=== PATIENT | male | born 1955 | race Caucasian/White ===

== ENCOUNTER 2017-10-27 15:01 | Inpatient (IN) | payer MEDICAID, OTHER ==
[2017-10-26 20:00] VITALS: BP 107/70
[~2017-10-27] VITALS: Ht 167.6 cm; Wt 71.7 kg
--- NOTE | 2017-10-27 15:15 | NUR ---
BB PRIVATE EMS FROM [facility] FOR ADMISSION D/T SKIN GRAFT PROCEDURE. NOTED WITH DD ON BLE. SEEN BY MD FOR EVAL. SAFETY AND COMFORT MEASURES PROVIDED. WILL MONITOR.
[2017-10-27 15:52] LABS: BASOPHILS # (AUTO) 0.1 /CMM (0.0-0.2); BASOPHILS % (AUTO) 3.1 % (0.0-2.0); EOSINOPHILS % (AUTO) 3.6 % (0.0-6.0); HEMATOCRIT 25 % (39-51); HEMOGLOBIN 8.3 g/dL (13.5-17.5); LYMPHOCYTES # (AUTO) 0.5 /CMM (0.8-4.8); LYMPHOCYTES % (AUTO) 12.5 % (20.0-44.0); MEAN CORPUSCULAR HEMOGLOBIN 29 PG (26.0-33.0); MEAN CORPUSCULAR HGB CONC 33 g/dl (31.0-36.0); MEAN CORPUSCULAR VOLUME 86 fL (80-96); MONOCYTES # (AUTO) 0.6 /CMM (0.1-1.30); MONOCYTES % (AUTO) 13.3 % (2.0-12.0); NEUTROPHILS # (AUTO) 2.8 /CMM (1.8-8.9); NEUTROPHILS % (AUTO) 67.5 % (43.0-81.0); PLATELET COUNT (AUTO) 149 /CMM (150-450); RDW COEFFICIENT OF VARIATION 14.4 (11.5-15.0); WHITE BLOOD COUNT (AUTO) 4.2 K/uL (4.3-11.0)
[2017-10-27 16:02] LABS: CALCIUM, SERUM 7.9 mg/dL (8.5-10.1); CREATININE 1.1 mg/dL (0.6-1.3); POTASSIUM 3.6 mmol/L (3.5-5.1)
[2017-10-27 16:05] LABS: INR 1.17 (0.85-1.15)
--- NOTE | 2017-10-27 16:09 | NUR ---
NAI CALLED, NATHALIA NEFF POWER PLANT SUPERINTENDENT, TRANSFERRED CALL TO .
--- NOTE | 2017-10-27 16:17 | NUR ---
CALLED NURSING SUP. FOR MS BED
[2017-10-27] MEDS ORDERED: QUET50TA PO (16:31)
[2017-10-27] MEDS ORDERED: ZINC220T PO (16:31)
[2017-10-27] MEDS ORDERED: SPIR25TA PO (16:31)
[2017-10-27] MEDS ORDERED: QUET100T PO (16:31)
[2017-10-27] MEDS ORDERED: LACT10SO PO (16:31)
[2017-10-27] MEDS ORDERED: MIRT15TA PO (16:31)
[2017-10-27] MEDS ORDERED: FURO40TA5 PO (16:31)
[2017-10-27] MEDS ORDERED: CALC-494 PO (16:31)
[2017-10-27] MEDS ORDERED: DOCU-141 PO (16:31)
[2017-10-27] MEDS ORDERED: ONDA4TAB8 PO (16:31)
[2017-10-27] MEDS ORDERED: OXYC10TA49 PO (16:31)
[2017-10-27] MEDS ORDERED: MULT-213 PO (16:31)
[2017-10-27] MEDS ORDERED: GABA300C PO (16:31)
[2017-10-27] MEDS ORDERED: ASCO500T8 PO (16:31)
[2017-10-27] MEDS ORDERED: POLY17PO4 PO (16:31)
[2017-10-27] MEDS ORDERED: ACET-868 PO (16:31)
[2017-10-27] MEDS ORDERED: ONDANSETRON HCL/PF 4 MG/2 ML VIAL IVP PRN (17:00)
[2017-10-27] MEDS ORDERED: LACTULOSE 10 G/15 ML UDC (PYXIS) PO PRN (17:00)
[2017-10-27] MEDS ORDERED: Z GUARD REMEDY 2 OZ OINT TP PRN (17:00)
[2017-10-27] MEDS ORDERED: MAG HYDROX/AL HYDROX/SIMETH 30 ML UDC PO PRN (17:00)
[2017-10-27] MEDS ORDERED: MAGNESIUM HYDROXIDE 30 ML UDC PO PRN (17:00)
[2017-10-27] MEDS ORDERED: HYDROCODONE/APAP 5/325MG 1 EACH TABLET PO PRN (17:00)
[2017-10-27] MEDS ORDERED: POLYETHYLENE GLYCOL 3350 17 GM POWD.PACK PO PRN (17:00)
[2017-10-27] MEDS ORDERED: ACETAMINOPHEN 325 MG TABLET PO PRN (17:00)
--- NOTE | 2017-10-27 17:35 | NUR ---
CONSOLIDATION ACCOUNTANT NOTES RECEIVED PATIENT FROM ER VIA GURNEY. A/OX3, ABLE TO MAKE NEEDS KNOWN. TOLERATING ROOM AIR, O2SAT @ 97%. NO ACUTE DISTRESS, NO SOB NOTED. COMPLAINED OF PAIN IN BOTH LEGS 8/10, WILL ADMINISTER PAIN MEDS ORDERED. IV SITE INTACT AND PATENT. PATIENT IS FOR SKIN GRAFT TOMORROW. PATIENT RIGHT BKA NOTED. PATIENT REFUSED SKIN PHOTO ON LEFT LOWER EXTREMITY, PATIENT DOESNT WANT THE DRESSING TO BE TOUCHED. KEPT PATIENT SAFE AND COMFORTABLE. BED IN LOW/LOCKED POSITION, SIDERAILS UPX2, CALL LIGHT IN REACH. WILL CONTNIUE TO MONITOR ACCORDINGLY.
--- NOTE | 2017-10-27 17:48 | NUR ---
REPORT GIVEN TO RENE HOLM
--- NOTE | 2017-10-27 17:50 | NUR ---
RN NOTES PATIENT REFUSED SKIN ASSESSMENT ON HIS BACK. PER PATIENT, "I DONT HAVE ANY WOUNDS IN MY BACK".
[2017-10-27] MEDS: HYDROCODONE/APAP 10/325MG 1 EA TABLET PO PRN ×2 (18:13→21:40)
[2017-10-27] MEDS: CALCIUM CARB 600MG /VIT D 1 EACH TABLET PO SCH (18:14)
[2017-10-27] MEDS: GABAPENTIN 300 MG CAPSULE PO SCH (18:14)
[2017-10-27] MEDS: DOCUSATE SODIUM 100 MG CAPSULE PO SCH (18:14)
--- NOTE | 2017-10-27 19:26 | NUR ---
RN CLOSING NOTES PATIENT IN STABLE CONDITION. ALL NEEDS ATTENDED AND PROVIDED. KEPT PATIENT SAFE AND COMFORTABLE. BED IN LOW/LOCKED POSITION, SIDERAILS UPX2, SEMIFOWLERS POSITION, CALL LIGHT IN REACH. ENDORSED TO NIGHT RN FOR MARIA DEL CARMEN.
[2017-10-27 20:00] VITALS: BP 107/70
--- NOTE | 2017-10-27 20:00 | NUR ---
MS/RN OPENING NOTES PATIENT IN BED, ALERT, ORIENTED, RESPIRATIONS EVEN AND UNLABORED DISCUSSED PLAN OF CARE. SKIN WARM TO TOUCH, REQUESTED FOR SOME SNACKS, PATIENT REPORTED BEING HUNGRY. CALL LIGHTS WITHIN REACH, PROVIDESD FLUIDS,WILL MONITOR.
[2017-10-27] MEDS: QUETIAPINE FUMARATE 100 MG TABLET PO SCH (21:30)
[2017-10-27] MEDS: MIRTAZAPINE 15 MG TABLET PO SCH (21:30)
--- NOTE | 2017-10-27 21:37 | NUR ---
MS/RN NOTES PATIENT REPORTED SEVERE PAIN OF 9/10 IN BODY BACK, PAIN MEDICATION REQUESTED NEEDED NORCO 10-325MG PO WILL BE GIVEN.
[2017-10-27 21:50] VITALS: BP 107/70
--- NOTE | 2017-10-28 04:48 | NUR ---
MS/RN NOTES PATIENT AWAKEN, PAIN REPORTED 9/10 IN BACK AND LEGS.NORCO 10-325 MG PO TO BE GIVEN
[2017-10-28] MEDS: HYDROCODONE/APAP 10/325MG 1 EA TABLET PO PRN ×2 (04:50→09:10)
--- NOTE | 2017-10-28 06:28 | NUR ---
321-1 MS/RN NOTES PATIENT IN BED, ABLE TO SLEEP DURING THE NIGHT, MONITORING FOR PAIN RELIEF, DISCUSSED PLAN OF CARE, RESPIRATIONS EVEN AND UNLABORED, SKIN WARM TO TOUCH, WILL MONITOR.WILL ENDORSE TO AM RN FOR CO,
--- NOTE | 2017-10-28 07:15 | NUR ---
RN NOTES PATIENT A/OX3, HARD OF HEARING, BREATHING EVEN AND UNLABORED, NO DISTRESS NOTED. DENIES PAIN AT THIS TIME. KEPT COMFORTABLE, CLARIFIED PATIENT'S CODE STATUS, PATIENT STATED HE PREFERS TO BE DNR/DNI, MD AWARE. NEEDS ATTENDED AND MET, CALL LIGHT WITHIN REACH, WILL CONTINUE TO MONITOR.
[2017-10-28 07:28] LABS: BASOPHILS % (AUTO) 0.8 % (0.0-2.0); EOSINOPHILS % (AUTO) 5.2 % (0.0-6.0); HEMATOCRIT 24 % (39-51); LYMPHOCYTES # (AUTO) 0.6 /CMM (0.8-4.8); LYMPHOCYTES % (AUTO) 15.8 % (20.0-44.0); MEAN CORPUSCULAR HEMOGLOBIN 30 PG (26.0-33.0); MEAN CORPUSCULAR HGB CONC 34 g/dl (31.0-36.0); MEAN CORPUSCULAR VOLUME 88 fL (80-96); MONOCYTES # (AUTO) 0.4 /CMM (0.1-1.30); MONOCYTES % (AUTO) 11.8 % (2.0-12.0); NEUTROPHILS # (AUTO) 2.3 /CMM (1.8-8.9); NEUTROPHILS % (AUTO) 66.4 % (43.0-81.0); PLATELET COUNT (AUTO) 143 /CMM (150-450); RDW COEFFICIENT OF VARIATION 15.3 (11.5-15.0); WHITE BLOOD COUNT (AUTO) 3.5 K/uL (4.3-11.0)
[2017-10-28 07:49] LABS: CALCIUM, SERUM 8.1 mg/dL (8.5-10.1); MAGNESIUM 1.8 mg/dL (1.8-2.4); PHOSPHORUS 4.5 mg/dL (2.5-4.9); POTASSIUM 3.4 mmol/L (3.5-5.1)
[2017-10-28 07:51] LABS: THYROID STIMULATING HORMONE 4.178 uIU/mL (0.358-3.74)
[2017-10-28 08:00] VITALS: BP 108/66
[2017-10-28] MEDS: MULTIVIT, IRON, MIN NO. 8, FA 1 TAB PO SCH (09:03)
[2017-10-28] MEDS: FUROSEMIDE 40 MG TABLET PO SCH (09:03)
[2017-10-28] MEDS: QUETIAPINE FUMARATE 25 MG TABLET PO SCH (09:04)
[2017-10-28] MEDS: GABAPENTIN 300 MG CAPSULE PO SCH ×3 (09:04→17:44)
[2017-10-28] MEDS: ASCORBIC ACID 500 MG TABLET PO SCH (09:04)
[2017-10-28] MEDS: CALCIUM CARB 600MG /VIT D 1 EACH TABLET PO SCH ×3 (09:04→17:43)
[2017-10-28] MEDS: ZINC SULFATE 220 MG CAPSULE PO SCH (09:04)
[2017-10-28] MEDS: DOCUSATE SODIUM 100 MG CAPSULE PO SCH ×2 (09:04→17:43)
[2017-10-28] MEDS: SPIRONOLACTONE 25 MG TABLET PO SCH (09:05)
[2017-10-28] MEDS ORDERED: POTASSIUM CHLORIDE 20 MEQ TAB.PRT.SR PO SCH (11:30)
--- NOTE | 2017-10-28 12:36 | NUR ---
WOUND CARE CONSULT WOUND CARE RECEIVED CONSULT FOR MULTIPLE WOUNDS. WOUND CARE WILL DEFER CONSULT AND ALL TREATMENT PLANS TO PODIATRY THEY ARE CURRENTLY FOLLOWING AND PLANNING OP PROCEDURE. PATIENT WITH MOSES AT 17, ALL PRESSURE ULCER PREVENTION MEASURES ARE NOTED TO BE IN PLACE. WILL SEE PRN.
[2017-10-28] MEDS: oxyCODONE IR immediate release 5 MG PO PRN ×3 (13:28→21:50)
[2017-10-28 16:00] VITALS: BP 103/59
[2017-10-28] MEDS: HYDROGEL DRESSING 90 GM TUBE TP SCH (17:45)
[2017-10-28] MEDS: Z GUARD REMEDY 2 OZ OINT TP SCH (17:45)
--- NOTE | 2017-10-28 18:58 | NUR ---
RN NOTES PATIENT A/OX3, NO SIGNIFICANT CHANGE THIS SHIFT, PATIENT SIGNED CONSENT FOR TOMORROW'S PROCEDURE OF SKIN GRAFT. WILL BE NPO AFTER MIDNIGHT, NEEDS ATTENDED AND MET, WOUND TREATMENT RENDERED, CALL LIGHT WITHIN REACH, WILL ENDORSE TO FREIGHT AND PASSENGER AGENT FOR MARIA DEL CARMEN.
--- NOTE | 2017-10-28 19:45 | NUR ---
MS RN NOTES RECEIVED ON BED A/O X2-3,BREATHING REGULAR,NOT IN ANY FORM OF DISTRESS.NOTED DISTENDED ABDOMEN,SOEY TO TOUCH.PATIENT CLAIMED HE HAS ASCITIS FROM LIVER CIRRHOSIS.SALINE LOCK RFA INTACT AND PATENT.WITH KNOWN HX OF RIGHT BKA.ABLE TO VERBALIZE NEEDS.NOTED NON HEALIONG WOUNDS ON LLE,PLAN SKIN GRAFT TOMORROW,PATIENT AWARE.CALL LIGHT IN REACH,NEEDS ANTICIPATED.
[2017-10-28 20:00] VITALS: BP 102/60
[2017-10-28] MEDS: MIRTAZAPINE 15 MG TABLET PO SCH (21:48)
[2017-10-28] MEDS: QUETIAPINE FUMARATE 100 MG TABLET PO SCH (21:49)
--- NOTE | 2017-10-28 21:50 | NUR ---
MS RN NOTES PAIN MANAGEMENT C/O PAIN ON BOTH LEGS AND ABDOMEN 9/10 ON PAIN SCALE.GIVEN OXY IR 10MG PO PER PATIENT REQUEST,BP 102/60,PATIENT HIS BLOOD PRESSURE IS ALWAYS LOW.
[2017-10-29] MEDS: oxyCODONE IR immediate release 5 MG PO PRN ×5 (01:52→23:39)
--- NOTE | 2017-10-29 01:52 | NUR ---
MS RN NOTES C/O ABDOMINAL PAIN,OXY IR 10MG PO GIVEN
--- NOTE | 2017-10-29 05:30 | NUR ---
MS RN NOTES SLEEPING,REFUSED BLOOD DRAW,WANTS IT LATER.
--- NOTE | 2017-10-29 06:03 | NUR ---
MS RN NOTES KEPT NPO AFTER MIDNIGHT FOR SURGERY AT NOONTIME.SALINE LOCK INTACT AND PATENT ON RFA.PAIN MANAGEMENT EFFECTIVE.IN NO ACUTE DISTRESS.WILL ENDORSE TO DAY-NURSE FOR MARIA DEL CARMEN.
--- NOTE | 2017-10-29 07:42 | NUR ---
MS RN OPENING NOTES RECEIVED PT FROM NIGHTSHIFT NURSE IN STABLE CONDITION. PT IS A/O X4. NO SOB OR SIGNS OF INFILTRATION NOTED. BREATHING IS EVEN AND UNLABORED. PT DENIES PAIN AT THIS TIME. NPO STATUS MAINTAINED SINCE MIDNIGHT PT IS SCHEDULED FOR OR PROCEDURE AT NOON. PT REMINDED OF NUTRITION STATUS AND VERBALIZED FULL UNDERSTANDING. IV TP RIGHT FOREARM NOTED TO BE PATENT AND INTACT. NO REDNESS OR SIGNS OF INFILTRATION NOTED. BED IN LOW LOCKED POSITION, SIDE RAILS UP X2, JUAN C LIGHT WITHIN REACH. WILL CONTINUE TO MONITOR.
--- NOTE | 2017-10-29 07:49 | NUR ---
PT REFUSED AM LAB DRAW PER NIGHTSHIFT NURSE
[2017-10-29] MEDS: Z GUARD REMEDY 2 OZ OINT TP SCH (08:21)
[2017-10-29] MEDS: HYDROGEL DRESSING 90 GM TUBE TP SCH (08:21)
[2017-10-29 08:28] VITALS: BP 102/65
[2017-10-29] MEDS: FUROSEMIDE 40 MG TABLET PO SCH (08:38)
[2017-10-29] MEDS: SPIRONOLACTONE 25 MG TABLET PO SCH (08:38)
[2017-10-29] MEDS: DOCUSATE SODIUM 100 MG CAPSULE PO SCH ×2 (08:38→16:55)
[2017-10-29] MEDS: CALCIUM CARB 600MG /VIT D 1 EACH TABLET PO SCH ×3 (08:38→16:56)
[2017-10-29] MEDS: GABAPENTIN 300 MG CAPSULE PO SCH ×3 (08:38→16:56)
[2017-10-29] MEDS: MULTIVIT, IRON, MIN NO. 8, FA 1 TAB PO SCH (08:39)
[2017-10-29] MEDS: ASCORBIC ACID 500 MG TABLET PO SCH (08:39)
[2017-10-29] MEDS: ZINC SULFATE 220 MG CAPSULE PO SCH (08:39)
[2017-10-29] MEDS: QUETIAPINE FUMARATE 25 MG TABLET PO SCH (09:00)
[2017-10-29] MEDS ORDERED: LIDOCAINE 0.5% HCL 50 ML VIAL ONE (10:55)
[2017-10-29] MEDS ORDERED: MINERAL OIL 10 ML VIAL MC ONE ×2 (10:55→12:42)
[2017-10-29] MEDS ORDERED: ANESTHESIA TRAY IN PYXIS 1 EA TRAY MC ONE (10:55)
[2017-10-29] MEDS ORDERED: BUPIVACAINE 0.5 % PF 150 MG/30 ML VIAL ONE (10:55)
--- NOTE | 2017-10-29 11:30 | NUR ---
PT TAKEN DOWN TO OR IN STABLE CONDITION
[2017-10-29] MEDS ORDERED: FENTANYL PF 100MCG/2ML AMPUL ONE (11:59)
[2017-10-29] MEDS ORDERED: LIDOCAINE 0.5%-EPI 1:200,000 50 ML VIAL ONE (12:04)
[2017-10-29] MEDS ORDERED: CLINDAMYCIN 900 MG/6 ML VIAL ONE (12:21)
--- NOTE | 2017-10-29 14:36 | NUR ---
MS RN NOTES: POST OP RECEIVED PT FROM OR IN STABLE CONDITION. ORDERS NOTED FROM MD TO RESUME PROP ORDERS, WOUND VAC SETTINGS, AND TO KEEP SURGICAL DRESSING CLEAN, DRY, AND INTACT. WOUND VAC SETTING VERIFIED WITH OR NURSE AND SET TO 125mmHg. PT COMPLAINING OF PAIN RATED 8/10. WILL ADMINISTER PRN PAIN MEDICATION ALONG WITH 1300 MEDICATIONS. VITALS STABLE AT THIS TIME.
[2017-10-29 16:10] VITALS: BP 105/65
--- NOTE | 2017-10-29 18:38 | NUR ---
MS RN CLOSING NOTES PT REMAINS STABLE. ALL NEEDS WERE MET DURING SHIFT AND ORDERS CARRIED OUT ACCORDINGLY. ALL DUE MEDS GIVEN. WOUND AND SKIN CARE RENDERED. PT REPOSITIONED AND TURNED PER HOSPITAL PROTOCOL. PAIN PROPERLY MANAGED WITH PO MEDICATIONS. WOUND VAC REMAIN INTACT. SURGICAL DRESSING REMAINS CLEAN, DRY AND INTACT. SAFETY MEASURES REMAIN IN PLACE, WILL ENDORSE TO NIGHTSHIFT NURSE FOR MARIA DEL CARMEN
--- NOTE | 2017-10-29 19:35 | NUR ---
MS RN NOTES RECEIVED ON BED SLEEPING,AROUSABLE TO TACTILE STIMULI,SALINE LOCK LFA INTACT AND PATENT.S/P SKIN GRAFT ON LEFT LEFT,DRESSING INTACT AND DRY.ABDOMEN REMAINS DISTENDED FORM LIVER CIRRHOSIS.CALL LIGHT IN REACH,NEEDS ANTICIPATED.
--- NOTE | 2017-10-29 19:40 | NUR ---
MS RN NOTES PAIN MANAGEMENT C/O PAIN 8/10 ON LEFT LOWER LEG 8/10 ON PAIN SCALE,OXY IR 10MG PO GIVEN.BP 110/65.WILL CONTINUE TO MONITOR.
[2017-10-29 20:00] VITALS: BP 110/65
[2017-10-29] MEDS: QUETIAPINE FUMARATE 100 MG TABLET PO SCH (21:42)
[2017-10-29] MEDS: MIRTAZAPINE 15 MG TABLET PO SCH (21:43)
--- NOTE | 2017-10-29 23:39 | NUR ---
MS RN NOTES PAIN MANAGEMENT C/O LEFT LOWER LEG PAIN 8/10 ON PAIN SCALE,OXY IR 10MG PO GIVEN ORDERED.
[2017-10-30 00:44] LABS: CALCIUM, SERUM 8.1 mg/dL (8.5-10.1); CREATININE 1.1 mg/dL (0.6-1.3)
[2017-10-30] MEDS: oxyCODONE IR immediate release 5 MG PO PRN ×4 (05:35→20:49)
--- NOTE | 2017-10-30 05:35 | NUR ---
MS RN NOTES PAIN MANAGEMENT C/O PAIN 8/10 ON PAIN SCALE VIA LEFT LOWER LEG,OXY IR 10MG PO ORDERED.DRESSING TO LEFT LOWER LEG REMAINS PATENT.IN NO ACUTE DISTRESS.
--- NOTE | 2017-10-30 07:35 | NUR ---
MS RN OPENING NOTES RECEIVED PT FROM NIGHTSHIFT NURSE IN STABLE CONDITION. PT IS A/O X4. NO SOB OR ACUTE SIGNS OF DISTRESS NOTED. BREATHING IS EVEN AND UNLABORED. HE DENIES ANY PAIN AT THIS TIME. N IV TO RIGHT FOREARM HL, AND NOTED TO BE PATENT AND INTACT. NO REDNESS OR SIGNS OF INFILTRATION NOTED. SURGICAL DRESSINGS TO LEFT LOWER EXTREMITY NOTED TO BE CLEAN, DRY, AND INTACT. WOUND VAC AND INTACT WITH NO DRAINAGE NOTED AT THIS TIME. SETTINGS REVIEWED AND ARE ORDERED BY MD. BED IN LOW LOCKED POSITION, SIDE RAILS UP X2, JUAN C LIGHT WITHIN REACH. WILL CONTINUE TO MONITOR.
[2017-10-30 08:00] VITALS: BP 94/56
[2017-10-30] MEDS: ZINC SULFATE 220 MG CAPSULE PO SCH (08:44)
[2017-10-30] MEDS: ASCORBIC ACID 500 MG TABLET PO SCH (08:44)
[2017-10-30] MEDS: DOCUSATE SODIUM 100 MG CAPSULE PO SCH ×2 (08:44→16:47)
[2017-10-30] MEDS: CALCIUM CARB 600MG /VIT D 1 EACH TABLET PO SCH ×3 (08:44→16:47)
[2017-10-30] MEDS: GABAPENTIN 300 MG CAPSULE PO SCH ×3 (08:44→16:46)
[2017-10-30] MEDS: QUETIAPINE FUMARATE 25 MG TABLET PO SCH (08:44)
[2017-10-30] MEDS: MULTIVIT, IRON, MIN NO. 8, FA 1 TAB PO SCH (08:44)
[2017-10-30] MEDS: FUROSEMIDE 40 MG TABLET PO SCH (08:45)
[2017-10-30] MEDS: SPIRONOLACTONE 25 MG TABLET PO SCH (08:45)
[2017-10-30] MEDS: HYDROGEL DRESSING 90 GM TUBE TP SCH (08:45)
[2017-10-30] MEDS: Z GUARD REMEDY 2 OZ OINT TP SCH (08:45)
[2017-10-30 16:00] VITALS: BP 101/62
--- NOTE | 2017-10-30 16:35 | NUR ---
MS RN NOTES: D/C HELD PORTABLE WOUND VAC DELIVERED HOWEVER TUBING IS NOT COMPATIBLE WITH PT'S CURRENT WOUND VAC CONNECTOR TUBING. CASE MANAGEMENT MADE AWARE AND STATES THAT ANOTHER WILL BE ORDERED HOWEVER WILL NOT BE DELIVER UNTIL TOMORROW. DR. FERGUSON CONTACTED AND MADE AWARE BY SANDBLASTER SUPERVISOR. NATHALIA NEFF AND CHARGE NURSE UPDATED.
--- NOTE | 2017-10-30 18:25 | NUR ---
MS RN CLOSING NOTES PT REMAINS STABLE. ALL NEEDS WERE MET DURING SHIFT AND ORDERS CARRIED OUT ACCORDINGLY. ALL DUE MEDS GIVEN. WOUND AND SKIN CARE RENDERED. PT REPOSITIONED AND TURNED PER HOSPITAL PROTOCOL. PAIN PROPERLY MANAGED WITH PO MEDICATIONS. WOUND VAC REMAINS INTACT. SURGICAL DRESSING REMAINS CLEAN, DRY AND INTACT. SAFETY MEASURES REMAIN IN PLACE. WILL ENDORSE TO NIGHTSHIFT NURSE FOR MARIA DEL CARMEN
--- NOTE | 2017-10-30 19:40 | NUR ---
RN OPENING NOTES RECEIVED REPORT FROM DAYSHIFT RN AFSATU. FOUND Pt AWAKE, RESTING IN BED, WATCHING TV. NO S/S OF ACUTE DISTRESS OR SOB NOTED. Pt IS A/OX4, VERBAL, ABLE TO MAKE NEEDS KNOWN. IV ACCESS ON RFA #20G, SL. WOUND VAC FOR LEFT LEG. SAFETY MEASURES IN PLACE. BED LOW, LOCKED, HOB ELEVATED, SIDE RAILS UP, CALL LIGHT AND BEDSIDE TABLE WITHIN REACH. WILL CONTINUE TO MONITOR Pt THROUGHOUT THE NIGHT FOR SAFETY.
[2017-10-30 20:00] VITALS: BP 112/68
[2017-10-30] MEDS: MIRTAZAPINE 15 MG TABLET PO SCH (22:13)
[2017-10-30] MEDS: QUETIAPINE FUMARATE 100 MG TABLET PO SCH (22:13)
[2017-10-31] MEDS: oxyCODONE IR immediate release 5 MG PO PRN ×5 (02:35→23:21)
--- NOTE | 2017-10-31 02:35 | NUR ---
RN NOTES SYSTEM GLITCHED AND DID NOT SAVE THAT I SCANNED THE OXY MED. HAD TO MANUALLY CLICK TO RESAVE IT SINCE I THREW AWAY THE PACKAGE AFTER ADMINISTERING THE OXY PAIN MED TO THE Pt.
--- NOTE | 2017-10-31 06:40 | NUR ---
RN CLOSING NOTES NO SIGNIFICANT CHANGES DURING THE NIGHT. Pt REMAINS IN STABLE CONDITION AT THIS TIME. NO S/S OF ACUTE DISTRESS OR SOB NOTED DURING THE SHIFT. ALL NEEDS MET AND ATTENDED TO. SAFETY MEASURES IN PLACE. BED LOW, LOCKED, HOB ELEVATED, SIDE RAILS UP, CALL LIGHT AND BEDSIDE TABLE WITHIN REACH. WILL ENDORSE TO DAYSHIFT RN FOR Pt's MARIA DEL CARMEN.
--- NOTE | 2017-10-31 07:05 | NUR ---
MS RN NOTES PATIENT IN BED ALERT ORIENTED X 4. VERBALLY RESPONSIVE. NO ACUTE DISTRESS NOTED. BREATHING UNLABORED. NO SOB NOTED.WOUND VAC INTACT FUNCTIONING WELL. IV ACCESS PATENT AND INTACT, NO REDNESS OR SWELLING NOTED. SAFETY MEASURES IN PLACE. HOB ELEVATED. CALL LIGHT WITHIN REACH. WILL CONTINUE TO MONITOR ACCORDINGLY.
[2017-10-31] MEDS: SPIRONOLACTONE 25 MG TABLET PO SCH (09:00)
[2017-10-31] MEDS: FUROSEMIDE 40 MG TABLET PO SCH (09:00)
[2017-10-31] MEDS: MULTIVIT, IRON, MIN NO. 8, FA 1 TAB PO SCH (09:05)
[2017-10-31] MEDS: DOCUSATE SODIUM 100 MG CAPSULE PO SCH ×2 (09:05→17:35)
[2017-10-31] MEDS: ZINC SULFATE 220 MG CAPSULE PO SCH (09:05)
[2017-10-31] MEDS: QUETIAPINE FUMARATE 25 MG TABLET PO SCH (09:06)
[2017-10-31] MEDS: GABAPENTIN 300 MG CAPSULE PO SCH ×3 (09:06→17:35)
[2017-10-31] MEDS: ASCORBIC ACID 500 MG TABLET PO SCH (09:06)
[2017-10-31] MEDS: CALCIUM CARB 600MG /VIT D 1 EACH TABLET PO SCH ×3 (09:06→17:35)
[2017-10-31] MEDS: HYDROGEL DRESSING 90 GM TUBE TP SCH (09:10)
[2017-10-31] MEDS: Z GUARD REMEDY 2 OZ OINT TP SCH (09:10)
[2017-10-31 16:00] VITALS: BP 108/62
--- NOTE | 2017-10-31 18:57 | NUR ---
MS RN NOTES PATIENT IN BED ALERT ORIENTED X 4. VERBALLY RESPONSIVE. NO ACUTE DISTRESS NOTED. BREATHING UNLABORED. NO SOB NOTED.WOUND VAC INTACT FUNCTIONING WELL. IV ACCESS PATENT AND INTACT, NO REDNESS OR SWELLING NOTED. DUE MEDICATIONS GIVEN, NO ASE NOTED. NEEDS ATTENDED AND ANTICIPATED. SAFETY MEASURES IN PLACE. HOB ELEVATED. CALL LIGHT WITHIN REACH. WILL CONTINUE TO MONITOR ACCORDINGLY. WILL ENDORSE TO NIGHT NURSE FOR CONTINUITY OF CARE.
--- NOTE | 2017-10-31 19:00 | NUR ---
MS RN OPENING NOTE RECEIVE PATIENT AWAKE IN BED, A/O X4, STABLE NO FACIAL GRIMACING NOTED FOR PAIN. NO SOB OR DISTRESS NOTED, CALL LIGHT WITHIN REACH. SAFETY MEASURES IMPLEMENTED. WILL CONTINUE TO MONITOR THROUGHOUT SHIFT.
[2017-10-31 20:00] VITALS: BP 107/61
[2017-10-31] MEDS: MIRTAZAPINE 15 MG TABLET PO SCH (21:07)
[2017-10-31] MEDS: QUETIAPINE FUMARATE 100 MG TABLET PO SCH (21:07)
[2017-11-01] VITALS (8 sets, daily range): BP systolic 95–114; BP diastolic 56–67
[2017-11-01] MEDS: oxyCODONE IR immediate release 5 MG PO PRN ×5 (03:37→23:05)
--- NOTE | 2017-11-01 06:24 | NUR ---
MS RN CLOSING NOTES PT COMFORTABLY ASLEEP AND EASILY AWAKEN, A/O X 4, TOLERATING ROOM AIR 98%, RESPIRATION EVEN AND UNLABORED. KEPT CLEAN AND DRY AND COMFORTABLE, ALL NURSING CARE RENDERED. NEEDS ATTENDED AND ANTICIPATED, GOOD SKIN CARE PROVIDED. ON LOW BED AT ALL TIMES TO ENSURE SAFETY. SAFE HAZARD FREE ENVIRONMENT PROVIDED. NO COMPLAINS OF PAIN. CALL LIGHT WITHIN EASY TO REACH. WILL ENDORSE NEXT SHIFT CONTINUITY OF CARE
[2017-11-01] MEDS: DOCUSATE SODIUM 100 MG CAPSULE PO SCH ×2 (09:00→17:52)
--- NOTE | 2017-11-01 10:28 | NUR ---
PATIENT REFUSING MEDS EARLIER. BENEFITS AND RISKS EXPLAINED. PATIENT AGREED TO TAKE THE MEDICATIONS NOW
[2017-11-01] MEDS: QUETIAPINE FUMARATE 25 MG TABLET PO SCH (10:31)
[2017-11-01] MEDS: ASCORBIC ACID 500 MG TABLET PO SCH (10:31)
[2017-11-01] MEDS: MULTIVIT, IRON, MIN NO. 8, FA 1 TAB PO SCH (10:31)
[2017-11-01] MEDS: GABAPENTIN 300 MG CAPSULE PO SCH ×3 (10:32→17:52)
[2017-11-01] MEDS: ZINC SULFATE 220 MG CAPSULE PO SCH (10:32)
[2017-11-01] MEDS: HYDROGEL DRESSING 90 GM TUBE TP SCH (10:40)
[2017-11-01] MEDS: FUROSEMIDE 40 MG TABLET PO SCH (10:40)
[2017-11-01] MEDS: SPIRONOLACTONE 25 MG TABLET PO SCH (10:40)
[2017-11-01] MEDS: Z GUARD REMEDY 2 OZ OINT TP SCH (10:40)
[2017-11-01] MEDS: CALCIUM CARB 600MG /VIT D 1 EACH TABLET PO SCH ×3 (10:40→17:52)
--- NOTE | 2017-11-01 11:27 | NUR ---
PATIENT REFUSING CALCIUM, ALDACTONE, LASIX- BENEFITS AND RISKS EXPLAINED MULTIPLE TIMES PATIENT REFUSING ZGUARD AND CURASOL - REFUSING TURNING AND REPOSITIONING EVERY 2 HOURS EDUCATED ON INFECTION CONTROL-BENEFITS AND RISKS EXPLAINED. PATIENT STATING "LEAVE ME ALONE! I WANT TO SLEEP"
--- NOTE | 2017-11-01 17:34 | NUR ---
PATIENT REFUSING IV INSERTION CURRENT IV ON RIGHT FOREARM PATENT AND INTACT. IV INSERTION SITE NOTED TO BE RED. PATIENT DENYING BURNING SENSATION AND DISCOMFORT UPON FLUSHING THE LINE BENEFITS AND RISKS EXPLAINED AT LENGTH EDUCATED PATIENT ABOUT INFECTION CONTROL. PATIENT STILL REFUSED
--- NOTE | 2017-11-01 19:25 | NUR ---
RN NOTES: PATIENT RESTING IN BED. NONLABORED BREATHING NOTED ON ROOM AIR. IV SITE ON RIGHT FA GAUGE 20 PATENT AND INTACT. BED IN LOWEST LOCKED POSITION.WOUND VAC RUNNING PER ORDERS. LLE DRESSING INTACT. CALL LIGHT WITHIN REACH. ENDORSED TO MARGRET HOLM
--- NOTE | 2017-11-01 19:30 | NUR ---
MS/RN OPENING NOTES PT RECEIVED AWAKE, HOB ELEVATED. ON ROOM AIR, BREATHING EVEN AND UNLABORED. DENIES SOB, NOTES 10/27 PAIN TO LEFT LEG BUT RECENTLY RECEIVED PAIN MEDICATION. IV TO RFA PATENT AND INTACT, RED BUT REFUSING NEW IV INSERTION. WOUND VAC TO LEFT LEG AT 125MMHG WITH DRESSING INTACT. BED IN LOW/LOCKED POSITION WITH CALL LIGHT IN REACH. SIDE RAILS UPX2. WILL CONTINUE TO MONITOR
[2017-11-01] MEDS: QUETIAPINE FUMARATE 100 MG TABLET PO SCH (21:26)
[2017-11-01] MEDS: MIRTAZAPINE 15 MG TABLET PO SCH (21:26)
[2017-11-02 03:00] VITALS: BP 99/53
[2017-11-02] MEDS: oxyCODONE IR immediate release 5 MG PO PRN ×5 (03:06→21:01)
--- NOTE | 2017-11-02 06:48 | NUR ---
MS/RN CLOSING NOTES PT RESTING COMFORTABLE, HOB ELEVATED. ON ROOM AIR, BREATHING EVEN AND UNLABORED. DENIES SOB. PAIN MEDICATION PROVIDED THROUGHOUT SHIFT. WOUND VAC IN PLACE TO LLE AT 125MMHG, DRESSING C/D/I. ORDERS NOT TO REMOVE. IV TO RFA RED, BUT PATENT. REFUSING NEW IV INSERTION. ASSISTED PT WITH TURN/REPOSITION Q2H, ZGUARD AND MEPILEX TO SACRUM. NO SIGNIFICANT CHANGES OVERNIGHT. SIDE RAILS UPX2. BED IN LOW/LOCKED POSITION. WILL ENDORSE TO DAY SHIFT RN MARIA DEL CARMEN.
[2017-11-02 07:00] VITALS: BP 108/56
[2017-11-02 08:00] VITALS: BP 108/56
--- NOTE | 2017-11-02 08:00 | NUR ---
MS RN NOTES PATIENT IN BED RESTING NO SOB OR ACUTE DISTRESS NOTED. PATIENT WITH WOUND VAC INTACT PATENT. BED IN LOW LOCKED POSITION. CALL LIGHT WITHIN REACH. WILL CONTINUE TO MONITOR.
[2017-11-02] MEDS: DOCUSATE SODIUM 100 MG CAPSULE PO SCH ×2 (08:50→16:34)
[2017-11-02] MEDS: QUETIAPINE FUMARATE 25 MG TABLET PO SCH (08:50)
[2017-11-02] MEDS: SPIRONOLACTONE 25 MG TABLET PO SCH (08:50)
[2017-11-02] MEDS: MULTIVIT, IRON, MIN NO. 8, FA 1 TAB PO SCH (08:50)
[2017-11-02] MEDS: CALCIUM CARB 600MG /VIT D 1 EACH TABLET PO SCH ×3 (08:50→16:34)
[2017-11-02] MEDS: ASCORBIC ACID 500 MG TABLET PO SCH (08:51)
[2017-11-02] MEDS: GABAPENTIN 300 MG CAPSULE PO SCH ×3 (08:51→16:34)
[2017-11-02] MEDS: FUROSEMIDE 40 MG TABLET PO SCH (08:51)
[2017-11-02] MEDS: ZINC SULFATE 220 MG CAPSULE PO SCH (08:51)
[2017-11-02] MEDS: Z GUARD REMEDY 2 OZ OINT TP SCH (08:52)
[2017-11-02] MEDS: HYDROGEL DRESSING 90 GM TUBE TP SCH (08:52)
--- NOTE | 2017-11-02 15:00 | NUR ---
MS RN NOTES REHABILITATION COORDINATOR FROM FRANCIA CHENEY PICKED UP WOUND VAC WHICH WAS FROM [facility] THAT IS NOT BEING USED.
[2017-11-02 16:00] VITALS: BP 106/55
--- NOTE | 2017-11-02 18:15 | NUR ---
MS RN NOTES PATIENT IN BED RESTING NO SOB OR ACUTE DISTRESS NOTED. PATIENT IN BED ALERT, ORIENTED X3. ALL DUE MEDICATIONS ADMINISTERED. ALL NEEDS. PAIN CONTROLLED WITH MEDICATION. PATIENT WITH WOUND VAC KCI ON LEFT LOWER EXTREMITY INTACT. WILL ENDORSE TO PM SHIFT MARIA DEL CARMEN.
--- NOTE | 2017-11-02 19:49 | NUR ---
RECIEVED MR. CRANE IN BED USED THE URINAL. WATCHING TV. REMINDED ME TO BRING HIS PAIN MEDICATION ON TIME. DAY SHIFT RN STATED HIS IV IS INFILTRATED AND THE PATIENT IS REFUSING TO HAVE IN REMOVED AND RESTARTED. I ASKED HIM IF I COULD REMOVE THE HEPLOCK AND HAVE ONE ATTEMPT TO PUT A NEW ONE IN, HE ADAMANTLY REFUSED. WILL TRY AGAIN LATER. WOUND VAV ON
[2017-11-02 20:00] VITALS: BP 101/61
[2017-11-02 21:23] VITALS: BP 101/61
[2017-11-02] MEDS: QUETIAPINE FUMARATE 100 MG TABLET PO SCH (22:12)
[2017-11-02] MEDS: MIRTAZAPINE 15 MG TABLET PO SCH (22:13)
[2017-11-03] MEDS: oxyCODONE IR immediate release 5 MG PO PRN ×3 (02:51→14:49)
--- NOTE | 2017-11-03 05:42 | NUR ---
CLOSING NOTES: COOPERATIVE THRU OUT THE NIGHT. TAKING FLUIDS W/O PROBLEMS VOIDED X4 THRU THE NIGHT IN THE URINAL 200ML URINE WEAK TEA COLORED. MEDICATED WITHOXY IR 15MG Q6HR X2 AND EFFECTIVE FOR PAIN CONTROL TOES LEFT FOOT WARM AND MOVEMENT SEEN
[2017-11-03 08:00] VITALS: BP 115/64
--- NOTE | 2017-11-03 08:01 | NUR ---
MS RN OPENING NOTES RECEIVED PT SITTING UPRIGHT IN BED. PT IS A/O X3-4, AFEBRILE. RESPIRATIONS ARE EVEN AND UNLABORED, NOT IN ANY ACUTE DISTRESS NOTED. PT C/O PAIN 8/10 AND PT REQUESTED PAIN MEDICATION AT 0900. NO C/O SOB, N/V NOTED. IV SITE INTACT, NO INFILTRATION NOTED. DRESSING KEPT CLEAN AND DRY. SAFETY MEASURES ARE IN PLACE. WOUND VAC IS ATTACHED TO LEFT LEG, NOTED WITH MINIMAL DRAINAGE. INSTRUCTED PT TO USE CALL LIGHT WHEN ASSISTANCE IS NEEDED, CALL LIGHT IS LEFT WITHIN REACH. WILL CONTINUE TO MONITOR THROUGHOUT SHIFT FOR CONTINUITY OF CARE.
[2017-11-03] MEDS: GABAPENTIN 300 MG CAPSULE PO SCH ×2 (08:26→12:31)
[2017-11-03 08:27] VITALS: BP 115/64
[2017-11-03] MEDS: SPIRONOLACTONE 25 MG TABLET PO SCH (08:27)
[2017-11-03] MEDS: DOCUSATE SODIUM 100 MG CAPSULE PO SCH (08:27)
[2017-11-03] MEDS: FUROSEMIDE 40 MG TABLET PO SCH (08:27)
[2017-11-03] MEDS: ZINC SULFATE 220 MG CAPSULE PO SCH (08:27)
[2017-11-03] MEDS: ASCORBIC ACID 500 MG TABLET PO SCH (08:27)
[2017-11-03] MEDS: QUETIAPINE FUMARATE 25 MG TABLET PO SCH (08:27)
[2017-11-03] MEDS: CALCIUM CARB 600MG /VIT D 1 EACH TABLET PO SCH ×2 (08:27→12:32)
[2017-11-03] MEDS: MULTIVIT, IRON, MIN NO. 8, FA 1 TAB PO SCH (08:27)
[2017-11-03] MEDS: HYDROGEL DRESSING 90 GM TUBE TP SCH (08:29)
[2017-11-03] MEDS: Z GUARD REMEDY 2 OZ OINT TP SCH (08:30)
--- NOTE | 2017-11-03 11:00 | NUR ---
MS RN NOTES WOUND CARE DONE WITH DR. FERGUSON. PT TOLERATED DRESSING CHANGE WELL.
--- NOTE | 2017-11-03 13:24 | NUR ---
MS RN NOTES CALLED FRANCIA CHENEY, GAVE REPORT TO ALTA KANG.
--- NOTE | 2017-11-03 15:00 | NUR ---
PRACTICE MANAGEMENT CONSULTANT NOTE PT DISCHARGED TO [facility] VIA AMBULANCE ACCOMPANIED BY 3 EMT PERSONNEL. EXPLAINED DISCHARGED PAPERWORK TO PT WITH VERBAL AND WRITTEN AGREEMENT. PT REMAINS A/O X3-4, AFEBRILE. RESPIRATIONS ARE EVEN AND UNLABORED, NOT IN ANY ACUTE DISTRESS NOTED. ADMINISTERED OXYCODONE IR 15MG PRIOR TO LEAVING FOR 01/27 GENERALIZED. PT DENIES ANY SOB, N/V. IV REMOVED, APPLIED PRESSURE AND TOLERATED WELL. ID BAND REMOVED. ALL BELONGINGS SENT WITH PT. PT LEFT IN STABLE CONDITION.
== END 2017-11-03 15:00 | DRG 791 ==
LOC: ER 15:06 → WOUND3 17:29 → MED 18:37
PROVIDERS: ADMIT Nurse Practitioner Acute Care; ATTEND Nurse Practitioner Acute Care
PROC: 0HBJXZZ Excision of Left Upper Leg Skin, External Approach (ICD-10-PCS; principal; 2017-10-29 12:04)
PROC: 0HRLX74 Replacement of Left Lower Leg Skin with Autologous Tissue Substitute, Partial Thickness, External Approach (ICD-10-PCS; principal; 2017-10-29 12:04)
DX: T81.89XA Other complications of procedures, not elsewhere classified, initial encounter (principal); I50.9 Heart failure, unspecified; K74.60 Unspecified cirrhosis of liver; E87.1 Hypo-osmolality and hyponatremia; S81.05 Open bite of knee; D64.9 Anemia, unspecified; W54.0XXS Bitten by dog, sequela; Z89.511 Acquired absence of right leg below knee; E87.6 Hypokalemia; F32.9 Major depressive disorder, single episode, unspecified; F29 Unspecified psychosis not due to a substance or known physiological condition; Z88.0 Allergy status to penicillin; Z79.899 Other long term (current) drug therapy; G60.9 Hereditary and idiopathic neuropathy, unspecified; F10.10 Alcohol abuse, uncomplicated; Y90.9 Presence of alcohol in blood, level not specified
CPT/HCPCS: 36415; 71045-TC; 80048-TC; 80061-TC; 82040-TC; 83735-TC; 84100-TC; 84443-TC; 85025-TC; 85730-TC; 87081-TC; A4606; A6248; A6253; A6402; J3010; J3490; Z7610

== ENCOUNTER 2018-06-24 18:35 | Inpatient (IN) | payer MEDICAID ==
[~2018-06-24] VITALS: Ht 167.6 cm; Wt 63.0 kg
[~2018-06-24 18:35] MED LIST: ACET-868 PO; ASCO500T8 PO; CALC-494 PO; DOCU-141 PO; FURO40TA5 PO; GABA300C PO; LACT10SO PO; MIRT15TA PO; MULT-213 PO; ONDA4TAB8 PO; OXYC10TA49 PO; POLY17PO4 PO; QUET100T PO; QUET50TA PO; SPIR25TA PO; ZINC220T PO
--- NOTE | 2018-06-24 18:35 | NUR ---
PT BBRA FOR ABD PAIN; PT WENT AMA FROM SNF YESTERDAY. PT AAOX4, PT ON MONITOR, VSS, NAD NOTED, PENDING ER PROVIDER EVAL
[2018-06-24 19:29] LABS: BASOPHILS % (AUTO) 0.5 % (0.0-2.0); EOSINOPHILS % (AUTO) 0.7 % (0.0-6.0); HEMATOCRIT 33 % (39-51); HEMOGLOBIN 10.7 g/dL (13.5-17.5); LYMPHOCYTES # (AUTO) 0.7 /CMM (0.8-4.8); LYMPHOCYTES % (AUTO) 8.7 % (20.0-44.0); MEAN CORPUSCULAR HGB CONC 33 g/dl (31.0-36.0); MEAN CORPUSCULAR VOLUME 85 fL (80-96); MONOCYTES # (AUTO) 0.4 /CMM (0.1-1.30); MONOCYTES % (AUTO) 4.7 % (2.0-12.0); NEUTROPHILS # (AUTO) 6.9 /CMM (1.8-8.9); NEUTROPHILS % (AUTO) 85.4 % (43.0-81.0); PLATELET COUNT (AUTO) 167 /CMM (150-450); RED BLOOD CELL COUNT(AUTO) 3.85 MIL/uL (4.5-6.0); WHITE BLOOD COUNT (AUTO) 8.1 K/uL (4.3-11.0)
[2018-06-24 19:36] LABS: CALCIUM, SERUM 8.7 mg/dL (8.5-10.1); CARBON DIOXIDE 18 mmol/L (21-32); CHLORIDE 104 mmol/L (98-107); CREATININE 1.1 mg/dL (0.6-1.3); GLUCOSE 127 mg/dL (74-106); POTASSIUM 4.4 mmol/L (3.5-5.1); SODIUM SERUM 139 mmol/L (136-145); UREA NITROGEN, BLOOD 29 mg/dL (7-18)
[2018-06-24 19:42] LABS: ALANINE AMINOTRANSFERASE 26 U/L (12-78); ALBUMIN 3.4 g/dL (3.4-5.0); ALKALINE PHOSPHATASE 106 U/L (46-116); ASPARTATE AMINOTRANSFERASE 41 U/L (15-37); BILIRUBIN,TOTAL 0.8 mg/dL (0.2-1.0); LIPASE 228 U/L (73-393); TOTAL PROTEIN, SERUM 9.6 g/dL (6.4-8.2)
--- NOTE | 2018-06-24 19:42 | NUR ---
HOUSE SUP CALLED FOR BED
--- NOTE | 2018-06-24 20:34 | NUR ---
TELE BED GIVEN 110
--- NOTE | 2018-06-24 20:36 | NUR ---
NAI CALLED. WAS PAGED
[2018-06-24] MEDS ORDERED: FURO20TA4 PO (21:16)
[2018-06-24] MEDS ORDERED: PANT40TA2 PO (21:16)
[2018-06-24] MEDS ORDERED: PROP10TA68 PO (21:16)
[2018-06-24] MEDS ORDERED: GABA-532 PO (21:16)
[2018-06-24] MEDS ORDERED: SPIR100T5 PO (21:16)
[2018-06-24] MEDS ORDERED: OXYC5CAP18 PO (21:16)
[2018-06-24] MEDS ORDERED: CITA20TA16 PO (21:16)
--- NOTE | 2018-06-24 21:17 | NUR ---
REPORT GIVEN TO DAX HOLM FOR MARIA DEL CARMEN
[2018-06-24 21:29] VITALS: BP 145/71
[2018-06-24] MEDS ORDERED: ONDANSETRON HCL/PF 4 MG/2 ML VIAL IVP PRN (21:30)
[2018-06-24] MEDS ORDERED: Z GUARD REMEDY 2 OZ OINT TP PRN (21:30)
[2018-06-24] MEDS ORDERED: MAGNESIUM HYDROXIDE 30 ML UDC PO PRN (21:30)
[2018-06-24] MEDS ORDERED: ZOLPIDEM TARTRATE 5 MG TABLET PO PRN (21:30)
[2018-06-24] MEDS ORDERED: ACETAMINOPHEN 325 MG TABLET PO PRN (21:30)
--- NOTE | 2018-06-24 21:30 | NUR ---
MS RN NOTES ADMITTED A 63 Y/O MALE A/OX3 ABLE TO MAKE NEEDS KNOWN, ON ROOM AIR SATING 97% NO SOB NO DISTRESS NOTED ,ADMISSION ROUTINE CARE RENDERED. V/S STABLE AFEBRILE . PTS ADMITTED WITH DX OF ABDOMINAL PAIN , BODY CHECK DONE .ALL DUE MEDS GIVEN ORDERED ALL NEEDS ATTENDED TOO CALL LIGHT WITHIN REACH KEPT PTS CLEAN DRY AND COMFORTABLE, C/O OF ABDOMINAL PAIN OXY 5MG GIVEN ORDERED .
--- NOTE | 2018-06-24 21:34 | NUR ---
PT TRANSPORTED TO [address] [place] [address] VIA GURNEY WITH BIG DATA SOFTWARE ENGINEER
[2018-06-24] MEDS: GABAPENTIN 100 MG CAPSULE PO SCH (22:47)
[2018-06-24] MEDS: SPIRONOLACTONE 25 MG TABLET PO SCH (22:47)
[2018-06-24] MEDS: THIAMINE HCL 100 MG TABLET PO SCH (22:47)
[2018-06-24] MEDS: FUROSEMIDE 40 MG TABLET PO SCH (22:47)
[2018-06-24] MEDS: oxyCODONE IR immediate release 5 MG PO PRN (22:52)
[2018-06-25] MEDS ORDERED: MORPHINE SULFATE INJ 2 MG/ML DISP.SYRIN ONE (02:31)
[2018-06-25] MEDS: MORPHINE SULFATE INJ 2 MG/ML DISP.SYRIN IV PRN ×3 (02:42→14:33)
--- NOTE | 2018-06-25 03:15 | NUR ---
MS HOLM NOTES SEEN AND EXAMINED BY CHANDRIKA MOTA WITH ORDER MADE AND CARRIED OUT, CT SCAN ABDOMEN/PELVIS WITHOUT CONTRAST D/T ABDOMINAL PAIN. Addendum: 06/25/18 at 0320 by DAX SALINAS RN PTS WAS SEEN BY CHANDRIKA AT 0215 NOT 0314
--- NOTE | 2018-06-25 03:18 | NUR ---
MS RN NOTES PTS LEFT FOR CT ABDOMEN AND PELVIS
[2018-06-25 04:00] VITALS: BP 120/71
[2018-06-25] MEDS ORDERED: PANTOPRAZOLE 40 MG TABLET.DR PO SCH (07:30)
--- NOTE | 2018-06-25 07:52 | NUR ---
RN NOTES RECEIVED PATIENT AWAKE RESTING IN BED COMFORTABLY, ABLE TO MAKE NEEDS KNOWN. RESPIRATIONS EVEN AND UNLABORED, DENIES ANY PAIN OR DISCOMFORT AT THIS TIME. IV ACCESS PATENT AND INTACT NO REDNESS OR INFILTRATION NOTED. KEPT CLEAN DRY AND COMFORTABLE, CALL LIGHT WITHIN EASY REACH, WILL CONTINUE TO MONITOR
[2018-06-25 08:00] VITALS: BP 136/76
[2018-06-25] MEDS: CITALOPRAM HYDROBROMIDE 20 MG TABLET PO SCH (08:37)
[2018-06-25] MEDS: FUROSEMIDE 40 MG TABLET PO SCH (08:37)
[2018-06-25] MEDS: SPIRONOLACTONE 25 MG TABLET PO SCH (08:37)
[2018-06-25] MEDS: FOLIC ACID 1 MG TABLET PO SCH (08:37)
[2018-06-25] MEDS: PROPRANOLOL HCL 10 MG TABLET PO SCH (08:38)
[2018-06-25] MEDS: GABAPENTIN 100 MG CAPSULE PO SCH ×4 (08:38→21:01)
[2018-06-25] MEDS: THIAMINE HCL 100 MG TABLET PO SCH (08:38)
[2018-06-25] MEDS: oxyCODONE IR immediate release 5 MG PO PRN (08:40)
[2018-06-25 08:50] LABS: BASOPHILS % (AUTO) 0.6 % (0.0-2.0); HEMATOCRIT 30 % (39-51); LYMPHOCYTES # (AUTO) 0.6 /CMM (0.8-4.8); MEAN CORPUSCULAR HGB CONC 34 g/dl (31.0-36.0); MEAN CORPUSCULAR VOLUME 82 fL (80-96); MONOCYTES # (AUTO) 0.6 /CMM (0.1-1.30); MONOCYTES % (AUTO) 9.5 % (2.0-12.0); NEUTROPHILS # (AUTO) 4.8 /CMM (1.8-8.9); NEUTROPHILS % (AUTO) 78.9 % (43.0-81.0); PLATELET COUNT (AUTO) 126 /CMM (150-450); RED BLOOD CELL COUNT(AUTO) 3.65 MIL/uL (4.5-6.0); WHITE BLOOD COUNT (AUTO) 6.1 K/uL (4.3-11.0)
[2018-06-25 08:55] LABS: CALCIUM, SERUM 8.8 mg/dL (8.5-10.1); MAGNESIUM 1.7 mg/dL (1.8-2.4); PHOSPHORUS 2.4 mg/dL (2.5-4.9); POTASSIUM 4.6 mmol/L (3.5-5.1)
[2018-06-25] MEDS: LORAZEPAM INJ 2 MG/ML VIAL IV PRN ×3 (09:17→21:43)
[2018-06-25] MEDS: Magnesium 1GM/D5W 100ML PREMIX 100 ML IV SCH ×2 (11:42→12:41)
[2018-06-25] MEDS ORDERED: K PHOS NEUTRAL 250 MG TABLET PO ONE (13:30)
--- NOTE | 2018-06-25 13:38 | NUR ---
WOUND CARE CONSULT WOUND CARE RECEIVED CONSULT FOR WOUNDS. WOUND CARE WILL DEFER CONSULT AND TREATMENT PLANS TO PLASTIC SURGICAL TEAM WHO HAVE BEEN NOTIFIED OF THIS CONSULT. PATIENT WITH MOSES AT 15, ALL PRESSURE ULCER PREVENTION MEASURES ARE NOTE TO BE IN PLACE. WILL SEE PRN.
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
[2018-06-25 16:00] VITALS: BP 130/80
--- NOTE | 2018-06-25 16:16 | NUR ---
RN MD CALL/ NOTES S/P THORACENTESIS BODY FLUID TAKEN TO LAB FOR ANALYSIS GIVEN TO KULDEEP FROM LAB. PER DR. NGUYEN PT TO HAVE CXR AT 1800 TODAY AND TOMORROW AM STAT H/H NOW AND Q12H X4, NURSING TO NOTIFY MD FOR HGB <9 OR PNEUMOTHORAX OR INCREASING PLEURAL EFFUSION NOTED ON CHEST XRAY
[2018-06-25 17:20] LABS: HEMOGLOBIN 10.4 g/dL (13.5-17.5)
--- NOTE | 2018-06-25 18:57 | NUR ---
RN NOTES PATIENT ASLEEP RESTING IN BED COMFORTABLY, EASILY AROUSABLE DURING CARE,ABLE TO MAKE NEEDS KNOWN. RESPIRATIONS EVEN AND UNLABORED, DENIES ANY PAIN OR DISCOMFORT AT THIS TIME. IV ACCESS PATENT AND INTACT NO REDNESS OR INFILTRATION NOTED. KEPT CLEAN DRY AND COMFORTABLE, CALL LIGHT WITHIN EASY REACH, WILL CONTINUE TO MONITOR AND ENDORSE TO NEXT SHIFT FOR CONTINUITY OF CARE
[2018-06-25 20:00] VITALS: BP 125/76
--- NOTE | 2018-06-25 20:19 | NUR ---
RN MS INITIAL NOTES RECEIVED PATIENT AWAKE RESTING IN BED COMFORTABLY, ABLE TO MAKE NEEDS KNOWN. RESPIRATIONS EVEN AND UNLABORED, S/P US GUIDED THORACENTESIS 960 ML, HEMOTHORAX NOTED, MD NGUYEN AWARE, ORDERED H&H Q12H X4 D/T HEMOTHORAX. DENIES ANY PAIN OR DISCOMFORT AT THIS TIME. IV ACCESS PATENT AND INTACT NO REDNESS OR INFILTRATION NOTED. KEPT CLEAN DRY AND COMFORTABLE, CALL LIGHT WITHIN EASY REACH, WILL CONTINUE TO MONITOR
[2018-06-25] MEDS: PANTOPRAZOLE 40 MG VIAL IV SCH (21:01)
[2018-06-26] MEDS: oxyCODONE IR immediate release 5 MG PO PRN ×3 (05:05→23:03)
--- NOTE | 2018-06-26 06:18 | NUR ---
RN MS CLOSING NOTES ENDORSED PATIENT ASLEEP RESTING IN BED COMFORTABLY, ABLE TO MAKE NEEDS KNOWN. RESPIRATIONS EVEN AND UNLABORED, S/P US GUIDED THORACENTESIS 960 ML, HEMOTHORAX NOTED, MD NGUYEN AWARE, ORDERED H&H Q12H X4 D/T HEMOTHORAX. DENIES ANY PAIN OR DISCOMFORT AT THIS TIME. IV ACCESS PATENT AND INTACT NO REDNESS OR INFILTRATION NOTED. KEPT CLEAN DRY AND COMFORTABLE, CALL LIGHT WITHIN EASY REACH, WILL CONTINUE TO MONITOR
--- NOTE | 2018-06-26 07:30 | NUR ---
MS RN OPENING NOTES RECEIVED PATIENT IN STABLE CONDITION. IN NO APPARENT DISTRESS. BEDSIDE RAILS ARE UPX2. BED IS LOCKED AND LOWERED. CALL LIGHT IS WITHIN REACH. IV LINE IS INTACT AND PATENT. WILL CONTINUE TO MONITOR PATIENT.
[2018-06-26 07:32] LABS: BASOPHILS # (AUTO) 0.1 /CMM (0.0-0.2); BASOPHILS % (AUTO) 1.1 % (0.0-2.0); EOSINOPHILS % (AUTO) 3.7 % (0.0-6.0); HEMATOCRIT 31 % (39-51); HEMOGLOBIN 10.6 g/dL (13.5-17.5); LYMPHOCYTES # (AUTO) 0.7 /CMM (0.8-4.8); LYMPHOCYTES % (AUTO) 11.2 % (20.0-44.0); MEAN CORPUSCULAR HGB CONC 34 g/dl (31.0-36.0); MEAN CORPUSCULAR VOLUME 82 fL (80-96); MONOCYTES # (AUTO) 0.7 /CMM (0.1-1.30); MONOCYTES % (AUTO) 12.7 % (2.0-12.0); NEUTROPHILS # (AUTO) 4.1 /CMM (1.8-8.9); NEUTROPHILS % (AUTO) 71.3 % (43.0-81.0); PLATELET COUNT (AUTO) 96 /CMM (150-450); RED BLOOD CELL COUNT(AUTO) 3.78 MIL/uL (4.5-6.0); WHITE BLOOD COUNT (AUTO) 5.8 K/uL (4.3-11.0)
[2018-06-26 07:40] LABS: CALCIUM, SERUM 8.5 mg/dL (8.5-10.1); MAGNESIUM 2.2 mg/dL (1.8-2.4); POTASSIUM 4.7 mmol/L (3.5-5.1)
[2018-06-26 08:00] VITALS: BP 110/69
[2018-06-26] MEDS: PROPRANOLOL HCL 10 MG TABLET PO SCH (08:53)
[2018-06-26] MEDS: SPIRONOLACTONE 25 MG TABLET PO SCH (08:53)
[2018-06-26] MEDS: PANTOPRAZOLE 40 MG VIAL IV SCH ×2 (08:53→21:51)
[2018-06-26] MEDS: FOLIC ACID 1 MG TABLET PO SCH (08:54)
[2018-06-26] MEDS: GABAPENTIN 100 MG CAPSULE PO SCH ×4 (08:54→21:52)
[2018-06-26] MEDS: CITALOPRAM HYDROBROMIDE 20 MG TABLET PO SCH (08:54)
[2018-06-26] MEDS: THIAMINE HCL 100 MG TABLET PO SCH (08:54)
[2018-06-26] MEDS: FUROSEMIDE 40 MG TABLET PO SCH (08:54)
[2018-06-26] MEDS: LORAZEPAM INJ 2 MG/ML VIAL IV PRN ×2 (08:57→22:01)
[2018-06-26] MEDS ORDERED: IOHEXOL-300 100 ML VIAL IV ONE ×2 (14:01→21:16)
[2018-06-26] MEDS ORDERED: IV NS 0.9% 250 ML IV ONE ×2 (14:01→21:16)
[2018-06-26] MEDS ORDERED: CT SWABBABLE VALVE TRANS SET 1 EA INFUS.SET MC ONE ×2 (14:01→21:16)
--- NOTE | 2018-06-26 15:22 | NUR ---
TRIED PERIPHERAL IV BY SOLE DYER,UNSUCCESSFUL, NOTIFIED ,OBTAINED MIDLINE ORDER.
[2018-06-26 16:00] VITALS: BP 101/60
--- NOTE | 2018-06-26 18:19 | NUR ---
MS RN CLOSING NOTES PATIENT IS IN STABLE CONDITION. IN NO APPARENT DISTRESS. BEDSIDE RAILS ARE UPX2. BED IS LOCKED AND LOWERED. CALL LIGHT IS WITHIN REACH. IV LINE IS INTACT AND PATENT. ALL NEEDS WERE MET. WILL ENDORSE CARE TO TOWN PLANNER NURSE FOR [facility].
[2018-06-26] MEDS: MORPHINE SULFATE INJ 2 MG/ML DISP.SYRIN IV PRN (20:33)
--- NOTE | 2018-06-26 20:50 | NUR ---
MS RN NOTES RECEIVED PATIENT AWAKE IN BED WITH NO DISTRESS NOTED. CALL LIGHT WITHIN REACH. MIDLINE INTACT AND PATENT. NO C/O PAIN OR DISCOMFORT. BED IN LOW LOCK SETTING. ALL BELONGINGS KEPT NEAR BEDSIDE. WILL CONTINUE TO MONITOR.
[2018-06-26] MEDS: MUPIROCIN OINT 2% 22 GM TUBE SCH ×2 (21:00→21:52)
--- NOTE | 2018-06-26 21:25 | NUR ---
PATIENT TAKEN TO RADIOLOGY FOR CHEST CT WITH [facility].
--- NOTE | 2018-06-26 21:40 | NUR ---
PATIENT BACK FROM RADIOLOGY VIA [facility] IN STABLE CONDITION. WILL RESUME DIET ORDERED.
--- NOTE | 2018-06-27 06:33 | NUR ---
MS RN NOTES PATIENT ASLEEP IN BED WITH NO DISTRESS NOTED. CALL LIGHT WITHIN REACH. ALL DUE MEDS GIVEN ORDERED WITH NO ASE NOTED. MIDLINE INTACT AND PATENT. NO FURTHER C/O PAIN OR DISCOMFORT. BED IN LOW LOCK SETTING. ALL BELONGINGS KEPT NEAR BEDSIDE. WILL CONTINUE TO MONITOR
--- NOTE | 2018-06-27 07:38 | NUR ---
MS RN OPENING NOTE RECEIVED PT IN BED, RESTING WITH EYES CLOSED AND EASILY AROUSABLE. PT IS A/OX4, DENIES CHEST PAIN, SOB, N/V AT THIS TIME. LEFT UPPER ARM MIDLINE IS SALINE PATENT, CLEAN, DRY AND INTACT. ALL NEEDS ATTENDED TO. BED IS LOCKED AND IN LOWEST POSITION, SIDE RAILS UP X2, BED ALARM ON, CALL LIGHT AND POSSESSIONS WITHIN REACH.
[2018-06-27 08:00] VITALS: BP 106/69
[2018-06-27] MEDS: MUPIROCIN OINT 2% 22 GM TUBE SCH ×2 (09:00→20:33)
[2018-06-27] MEDS: FOLIC ACID 1 MG TABLET PO SCH (09:28)
[2018-06-27] MEDS: FUROSEMIDE 40 MG TABLET PO SCH (09:28)
[2018-06-27] MEDS: CITALOPRAM HYDROBROMIDE 20 MG TABLET PO SCH (09:28)
[2018-06-27] MEDS: GABAPENTIN 100 MG CAPSULE PO SCH ×4 (09:28→20:33)
[2018-06-27] MEDS: SPIRONOLACTONE 25 MG TABLET PO SCH (09:28)
[2018-06-27] MEDS: PANTOPRAZOLE 40 MG VIAL IV SCH ×2 (09:28→20:33)
[2018-06-27] MEDS: PROPRANOLOL HCL 10 MG TABLET PO SCH (09:28)
[2018-06-27] MEDS: THIAMINE HCL 100 MG TABLET PO SCH (09:28)
[2018-06-27] MEDS: MORPHINE SULFATE INJ 2 MG/ML DISP.SYRIN IV PRN ×2 (11:12→19:50)
[2018-06-27] MEDS: LORAZEPAM INJ 2 MG/ML VIAL IV PRN (14:49)
[2018-06-27 16:00] VITALS: BP 107/63
--- NOTE | 2018-06-27 16:18 | NUR ---
MS RN NOTE INFORMED DR. LOPES, COVERING FOR DR. NGUYEN OF [facility] LEVEL 8.0 TODAY. NO NEW ORDERS RECEIVED.
[2018-06-27] MEDS: oxyCODONE IR immediate release 5 MG PO PRN (16:59)
--- NOTE | 2018-06-27 18:18 | NUR ---
MS RN CLOSING NOTE PT IN BED, RESTING WITH EYES CLOSED AND EASILY AROUSABLE. PT IS A/OX4, DENIES CHEST PAIN, SOB, N/V AT THIS TIME. LEFT UPPER ARM MIDLINE IS PATENT, CLEAN, DRY AND INTACT. ASSISTED PT WITH ADLS AND TO TURN AND REPOSITION Q2H FOR THE DURATION OF THE SHIFT. ADLS AND WOUND CARE PROVIDED ORDERED. ALL NEEDS ATTENDED TO. CONTACT PRECAUTIONS MAINTAINED. BED IS LOCKED AND IN LOWEST POSITION, SIDE RAILS UP X2, BED ALARM ON, CALL LIGHT AND POSSESSIONS WITHIN REACH. WILL ENDORSE TO TABLE SETTER NURSE FOR CONTINUITY OF CARE.
[2018-06-27 20:00] VITALS: BP 109/59
--- NOTE | 2018-06-27 20:06 | NUR ---
RN OPENING NOTES RECEIVED REPORT FROM HUGO HOLM. PATIENT A/A/O X3, ABLE TO MAKE NEEDS KNOWN. BREATHING EVEN & UNLABORED, TOLERATING ROOM AIR. DENIES ANY SOB OR DIFFICULTY BREATHING. RADIAL PULSES PRESENT. LEFT UPPER MIDLINE INTACT & PATENT W/ DRESSING CDI, SALINE LOCKED. C/O GENERALIZED PAIN 11/27, MORPHINE PRN GIVEN. SAFETY MEASURES IN PLACE W/ SIDE RAILS UP & BED ALARM ON. INSTRUCTED TO USE CALL LIGHT FOR ASSISTANCE. WILL CONTINUE TO MONITOR.
[2018-06-27 20:28] VITALS: BP 109/59
[2018-06-28 04:00] VITALS: BP 118/69
[2018-06-28] MEDS: MORPHINE SULFATE INJ 2 MG/ML DISP.SYRIN IV PRN (04:26)
[2018-06-28 06:52] LABS: BASOPHILS % (AUTO) 0.6 % (0.0-2.0); EOSINOPHILS % (AUTO) 4.6 % (0.0-6.0); HEMATOCRIT 28 % (39-51); HEMOGLOBIN 9.3 g/dL (13.5-17.5); LYMPHOCYTES # (AUTO) 0.6 /CMM (0.8-4.8); LYMPHOCYTES % (AUTO) 11.5 % (20.0-44.0); MEAN CORPUSCULAR HGB CONC 34 g/dl (31.0-36.0); MEAN CORPUSCULAR VOLUME 83 fL (80-96); MONOCYTES # (AUTO) 0.6 /CMM (0.1-1.30); MONOCYTES % (AUTO) 11.3 % (2.0-12.0); PLATELET COUNT (AUTO) 73 /CMM (150-450); RED BLOOD CELL COUNT(AUTO) 3.31 MIL/uL (4.5-6.0); WHITE BLOOD COUNT (AUTO) 5.6 K/uL (4.3-11.0)
[2018-06-28 07:14] LABS: CALCIUM, SERUM 8.1 mg/dL (8.5-10.1); CREATININE 1.3 mg/dL (0.6-1.3); POTASSIUM 4.5 mmol/L (3.5-5.1)
--- NOTE | 2018-06-28 07:30 | NUR ---
MS RN Opening Notes Patient asleep, resting in bed. Alert and oriented x3, able to make needs known. No complaints of pain at this time. Respirations even and unlabored on room air, no acute distress noted. Midline IV to the left upper arm gauge, intact, patent and saline locked. Updated patient on current plan of care and safety measures. Safety and fall precautions in place: bed in lowest and locked position, side rails up x2, bed alarm on, call light and personal possessions within reach. Patient verbalized understanding. Contact isolation precautions maintained. Will continue to monitor and intervene as needed.
[2018-06-28 07:49] LABS: EOSINOPHILS % (MANUAL) 4 % (0-4); LYMPHOCYTES % (MANUAL) 15 % (16-48); MONOCYTES % (MANUAL) 7 % (0-11.0); NEUTROPHILS % (MANUAL) 74 (42-76)
[2018-06-28 08:00] VITALS: BP 110/64
[2018-06-28] MEDS: SPIRONOLACTONE 25 MG TABLET PO SCH (09:00)
[2018-06-28] MEDS: CITALOPRAM HYDROBROMIDE 20 MG TABLET PO SCH (09:17)
[2018-06-28] MEDS: GABAPENTIN 100 MG CAPSULE PO SCH ×3 (09:17→17:00)
[2018-06-28] MEDS: PANTOPRAZOLE 40 MG VIAL IV SCH (09:17)
[2018-06-28] MEDS: THIAMINE HCL 100 MG TABLET PO SCH (09:17)
[2018-06-28] MEDS: FOLIC ACID 1 MG TABLET PO SCH (09:17)
[2018-06-28] MEDS: FUROSEMIDE 40 MG TABLET PO SCH (09:18)
[2018-06-28] MEDS: PROPRANOLOL HCL 10 MG TABLET PO SCH (09:18)
[2018-06-28] MEDS: MUPIROCIN OINT 2% 22 GM TUBE SCH (09:32)
[2018-06-28] MEDS: oxyCODONE IR immediate release 5 MG PO PRN (15:50)
[2018-06-28 16:00] VITALS: BP 103/63
--- NOTE | 2018-06-28 16:06 | NUR ---
ROBERT met with pt. bedside for discharge plan. Pt. is requesting an independent living, however pt. doesn't have the funds to pay for it until July 19. ROBERT informed pt. that funds will be needed to get into an independent living. Pt. became upset and began yelling at . ROBERT informed pt, that he should have not left [facility]MA from [facility] to drink alcohol. Pt. is taking no accountability for his actions and is blaming SW for his situation. Physical therapy also cleared the pt for [facility] placement and stated pt. has no PT needs. ROBERT offered pt. [facility] placement and pt. accepted it but was not too happy about it. Pt. is able to transfer independently to and from his wheelchair. Pt has a prosthetic leg. Pt. to be transported via taxi to [facility] production control supervisor location [address] [place], [place] [address] [place] All homeless resources were given to the pt. on 06/25/2018. Homeless Patient Waiver form was signed by the pt. JORGE LUIS Keen updated pt. regarding pt. discharge plan.
--- NOTE | 2018-06-28 17:13 | NUR ---
MS music manager Notes Patient awake, alert and oriented x3. Able to make needs known. No complaints of pain at this time. Respirations even and unlabored on room air, no acute distress noted. Midline to the left upper arm removed with catheter tip intact. No redness, swelling or bleeding of the site noted. Discharge instructions and Exitcare provided to patient, acknowledged and signed discharge form. Patient discharged with all personal belongings including personal wheelchair and prosthetic leg (right), as noted on belongings form, acknowledged and signed discharge form. Skin assessment completed, photos noted in chart. ID band removed from patient. Patient [facility] with PABLO Engel, [facility].
== END 2018-06-28 17:13 | disposition home or self-care (01) | DRG 280 ==
LOC: ER 18:37 → TELE1 20:52 → MEDSG1 21:52
PROVIDERS: ADMIT Nurse Practitioner Acute Care; ATTEND Nurse Practitioner Acute Care
PROC: 0W993ZZ Drainage of Right Pleural Cavity, Percutaneous Approach (ICD-10-PCS; principal; 2018-06-25)
PROC: 05H633Z Insertion of Infusion Device into Left Subclavian Vein, Percutaneous Approach (ICD-10-PCS; 2018-06-26)
PROC: B547ZZA Ultrasonography of Left Subclavian Vein, Guidance (ICD-10-PCS; 2018-06-26)
DX: K70.31 Alcoholic cirrhosis of liver with ascites (principal); J90 Pleural effusion, not elsewhere classified; I50.32 Chronic diastolic (congestive) heart failure; E83.42 Hypomagnesemia; E87.1 Hypo-osmolality and hyponatremia; K92.2 Gastrointestinal hemorrhage, unspecified; D64.9 Anemia, unspecified; E87.6 Hypokalemia; Z89.511 Acquired absence of right leg below knee; F32.9 Major depressive disorder, single episode, unspecified; F10.10 Alcohol abuse, uncomplicated; R39.2 Extrarenal uremia; F11.90 Opioid use, unspecified, uncomplicated; F12.90 Cannabis use, unspecified, uncomplicated; G60.9 Hereditary and idiopathic neuropathy, unspecified; L98.9 Disorder of the skin and subcutaneous tissue, unspecified; S01.20XA Unspecified open wound of nose, initial encounter; F41.9 Anxiety disorder, unspecified; F17.200 Nicotine dependence, unspecified, uncomplicated; Z59.0 Homelessness; B19.20 Unspecified viral hepatitis C without hepatic coma
CPT/HCPCS: 36415; 36569; 71045-TC; 71260-TC; 76604-TC; 76942-TC; 80048-TC; 80053-TC; 80061-TC; 83690-TC; 83735-TC; 83880; 84100-TC; 84484-TC; 85025-TC; 85027-TC; 85730-TC; 87070-TC; 87075-TC; 87081-TC; 87102-TC; 88307-TC; 89051-TC; C9113; G0378; J2060; J2270; J3475; J7050; Q9967